=== PATIENT | male | born 1985 | race African-American/Black ===

== ENCOUNTER 2016-05-31 22:37 | Inpatient (IN) | payer OTHER ==
--- NOTE | ~2016-05-31 | A ---
[facility] Nutrition Therapy DATE: 06/01/16 Patient: NENA NETTLES Physician: BUSHRACAR Address: [address] Room/Bed: [address], Zip: [place] [address] Admit Date: 06/01/16 Date of : [birth year] Height: 5 11 Weight: 158 72 NUTRITIONAL ASSESSMENT: REASON: DKA Dx, NPO status in ICU 30 yo male admitted for DKA PMH: Chi 1 DM, SOLITARIO, HTN, DKA, anemia Anthropometrics: Ht: 5'11" Wt: 72 kg BMI: 22.1 Labs: Gluc 163 Accuchecks 56-279 Lipase 16 Meds: KCl, novolin, NaCl, D50% I/O & Bowel function: 2186/400, last BM 05/31 Skin Integrity: Scar to lower legs Edema: none noted Diet: NPO Assessment: Chart reviewed, events noted. Pt admitted for DKA, with h/o type [address] spoke with the pt at bedside, who was sleeping, lethargic. Pt woke up only to answer that he has lost weight, and is unsure of the amount or time frame. Pt is NPO per DKA protocol, and has orders to transfer to med surg once insulin drip is discontinued. RD left consistent carbohydrate diet education materials at bedside, and will follow up with the pt to further determine nutritional needs. Dx: Impaired glycemic control RT possibly uncontrolled DM AEB accuchecks 56-279, DKA. Intervention: 1. NPO 2. Advance diet once insulin drip discontinued Monitoring, Evaluation and Goals: 1. Oral intake; advance and tolerate diet once medically feasible 2. Labs; WNL: glucose 3. Weight; prevent unintentional weight loss Recommendations: 1. Once medically feasible when DKA protocol is lifted, advance the pt to a consistent carbohydrate diet as tolerated. [facility] Nutrition Therapy DATE: 06/01/16 Patient: NENA NETTLES Physician: JOSE ANGEL Address: [address] Room/Bed: [address], Zip: [place] [address] Admit Date: 06/01/16 Date of : [birth year] Height: 5 11 Weight: 158 72 2. Once the pt's diet is advanced, order Glucerna BID for supplemental nutrition. 3. Pt would benefit from consistent carbohydrate diet education once appropriate. Pt is at mild-moderate nutritional risk. RD will follow hospital course per protocol. Respectfully, KANDIS DRUMMOND RD, LD [facility] and Nutrition[facility] cc: client file
--- NOTE | ~2016-05-31 | EKG ---
PATIENT: NENA NETTLES UNIT #: [id number] Ventricular Rate: 92 BPM Atrial Rate: 92 BPM P-R Interval: 142 ms QRS Duration: 84 ms Q-T Interval: 360 ms QTC Calculation(Bezet): 445 ms P [place]: 72 degrees Calculated R [place]: 57 degrees Calculated T [place]: 32 degrees Diagnosis Line: Normal sinus rhythm Diagnosis Line: ST elevation, consider early repolarization, Diagnosis Line: pericarditis, or injury Diagnosis Line: Borderline ECG Diagnosis Line: No previous ECGs available Diagnosis Line: Confirmed by EBONIE BRIDGES MD ([id number]) on 06/03/2016 Diagnosis Line: 7:26:59 AM INTERPRETING MD: YULIANA BLACK
--- NOTE | ~2016-05-31 | HP ---
Unit #: [id number] #: [id number] Patient: NENA NETTLES [id number] [address] [address] [id number] I MR#: [id number] NAME: NENA NETTLES ROOM: [facility] Age: 30 Sex: M Admission Date: 06/01/2016 : 1985 Attending Physician: Davidson Jasso M.D. Primary Care Physician: No Primary Care Physician HISTORY AND PHYSICAL CHIEF COMPLAINT He says don't feel good, elevated blood sugar at home, nausea and vomiting. DISCUSSION This is a 30-year-old gentleman with a past medical history of insulin dependent diabetes, dyslipidemia, hypertension, who presented to emergency room with a chief complaint of not feeling very good and he said sugar was elevated at home. Feels body ache, tired, feels nauseous. In the ER he was found to have ketone in the urine. Sugar elevated to 475. Mild DKA and eventually admitted, started on insulin drip. He currently is feeling better. He denied chest pain, cough, fever, chills or other complaint. PAST MEDICAL HISTORY 1. History of insulin dependent diabetes. 2. History of gastroparesis. 3. Hypertension. 4. Depression. 5. Hyperlipidemia. PAST SURGICAL HISTORY History of cleft palate surgery. ALLERGIES No known drug allergies. SOCIAL HISTORY Denies smoking, denies alcohol, denies illicit drug use. FAMILY HISTORY Positive for diabetes. HOME MEDICATIONS 1. Lantus 33 units at bedtime. 2. Humulin R 10 units three times a day before meals. 3. Lipitor 10 mg daily. 4. He also says he takes some blood pressure medication. REVIEW OF SYSTEMS 14 review of systems was performed. All pertinent positive findings was not feeling well and high blood sugar, feeling fatigued and nauseous. Remaining were negative. PHYSICAL EXAMINATION GENERAL: Middle age man lying in the bed comfortably, currently not in Unit #: [id number] #: [id number] Patient: NENA NETTLES any distress. He is alert, awake, oriented x3. CURRENT VITAL SIGNS: Temperature 98, heart rate 80, respiratory rate 20, blood pressure 112/81. Oxygen 100% on room air. HEENT: Pupils equal, reactive to light. Head is normocephalic, atraumatic. NECK: Supple. No JVD. HEART: S1, S2. Regular rate and rhythm. ABDOMEN: Soft, nontender, nondistended. Bowel sounds positive. EXTREMITIES: Inspection normal. No cyanosis, no clubbing, no edema. NEURO: No focal neurologic deficit. SKIN: No rash. DIAGNOSTIC STUDIES LABORATORY: UA is negative. Positive for glucose more than 1000, positive for ketones. Flue negative. ABG - pH 7.39, O2 78, CO2 38. Chemistry - sodium 131, potassium 4.6, glucose 475, BUN 21, creatinine 1.8. LFT within normal limits. CBC - white count 5, hemoglobin 14, hematocrit 42, platelets 275. ASSESSMENT AND PLAN 1. Mild diabetic ketoacidosis: Continue insulin drip, DKA protocol. 2. Acute kidney injury. 3. Diabetes type 1. 4. Dyslipidemia. 5. History of hypertension. 6. DVT prophylaxis: Will place the patient on Lovenox. Dictated by Darlene Stewart TD: 06/01/2016 11:58 JOB #: [id number] HISTORY AND PHYSICAL X X HISTORY AND PHYSICAL
--- NOTE | ~2016-05-31 | DS ---
Unit #: [id number] #: [id number] Patient: NENA NETTLES [id number] [address] [address] [id number] I MR#: [id number] NAME: NENA NETTLES ROOM: 214 Age: 30 Sex: M Admission Date: 06/01/2016 : 1985 Discharge Date: 06/03/2016 Attending Physician: Juanita Acosta M.D. DISCHARGE SUMMARY DISCHARGE DIAGNOSES 1. Mild diabetic ketoacidosis. 2. Acute kidney injury. 3. Diabetes type 1, uncontrolled. 4. Hyperlipidemia. 5. Severe gastroparesis with multiple admissions for nausea and vomiting. 6. Hypertension. 7. History of depression. 8. Dehydration. 9. Mild hyponatremia. 10. Metabolic acidosis. CONSULTATION Dr. Navas. PROCEDURES None. DIAGNOSTIC STUDIES LABORATORY: Glucose 109, sodium 133, potassium 3.6, and creatinine 1. Blood cultures negative. IMAGING: Chest x-ray negative. ALLERGIES None. DISCHARGE MEDICATIONS 1. Lipitor 10 mg p.o. daily. 2. Lantus 33 units subcutaneous in the morning. 3. Humulin-R 10 units subcutaneous 3 times daily with meals. 4. Zofran 4 mg q.6 p.r.n. nausea. HOSPITAL COURSE This is a 30-year-old admitted because of nausea and vomiting. Mild DKA. Patient was admitted with insulin drip and DKA protocol and IV fluids given. Currently, DKA is resolved. Continue with insulin. I increased his insulin dose during the hospitalization course. Currently, sugars are 106. Acute kidney injury most likely secondary to DKA and dehydration. Patient received IV fluids. Creatinine is stable. Unit #: [id number] #: [id number] Patient: NENA NETTLES Diabetes type 1 with severe gastroparesis. He has been admitted multiple times here in the past, and also he went to [facility]. He takes Zofran and Reglan at home but with no luck. He might be a candidate for a stimulator. He agrees to see [facility] gastroenterology team for it. Hypertension, stable. DISPOSITION Patient will be discharged home. FOLLOWUP 1. With family physician in one week's time. 2. With [facility] gastroenterology team in one to two week's time. DISCHARGE INSTRUCTIONS 1. Patient is advised to see his family physician or come back to the ER if his symptoms persist or if his symptoms get worse. 2. Patient is advised to take small frequent meals and advised to control his sugars more closely. Patient understood the instructions. Dictated by... Darlene Guadalupe TD: 06/03/2016 21:33 JOB #: [id number] DISCHARGE SUMMARY X Juanita Acosta MD X DISCHARGE SUMMARY
--- NOTE | ~2016-05-31 | CR72 ---
[facility] A Service of [facility] RADIOLOGY TEXT RESULTS PATIENT: NENA NETTLES LOCATION: [facility] : [birth year] UNIT #: [id number] AGE: [address]: Davidson Jasso MD SEX: M ORDER DR: [id number] [place], [place] [address] [id number] I MR#: [id number] Acc #: [id number] NAME: NENA NETTLES : 1985 SEX: M STUDY DATE/TIME: 05/31/2016 22:57 UNIT: A ROOM: [facility] STUDY DESCRIPTION: CR Chest Single View Portable Attending Physician: Davidson Jasso M.D. Ordering Physician: Trever Hughes M.D. Primary Care Physician: No Primary Care Physician MEDICAL IMAGING REPORT This report is preliminary unless electronic signature is present EXAM AP portable chest. DATE OF EXAM 05/31/2016 HISTORY 30-year-old male in the ED with 1-day history of shortness of air. DKA is reported. TECHNIQUE AP portable chest x-ray. FINDINGS The examination is negative. The lungs are expanded and clear. Heart size and pulmonary vascularity are normal. No visible pulmonary infiltrate or pleural effusion. No change since 01/20/2016. IMPRESSION Negative chest. Dictated by... Kevin Carter M.D. THIS IS AN ELECTRONICALLY VERIFIED REPORT Kevin Carter M.D. at 06/02/2016 12:05 AM TRUMAN/srinath TD: 06/01/2016 22:45 JOB #: [id number] MEDICAL IMAGING REPORT [facility] A Service [facility] RADIOLOGY TEXT RESULTS PATIENT: NENA NETTLES LOCATION: [facility] : [birth year] UNIT #: [id number] AGE: [address]: Davidson Jasso MD SEX: M ORDER DR: COPY
--- NOTE | ~2016-05-31 | CO ---
Unit #: [id number] #: [id number] Patient: NENA NETTLES [id number] [address] [address] [id number] I MR#: [id number] NAME: NENA NETTLES ROOM: 214 Age: 30 Sex: M Admission Date: 06/01/2016 : 1985 Attending Physician: Davidson Jasso M.D. Primary Care Physician: No Primary Care Physician CONSULTATION REPORT REASON FOR CONSULTATION Critical care management. CHIEF COMPLAINT 30-year-old male with a past medical history of diabetes, gastroparesis, hypertension, dyslipidemia, depression, presented with a complaint of nausea, vomiting and has been admitted to intensive care unit with impression of DKA and acute kidney injury. I am seeing him at the bedside complaining of nausea, vomiting, abdominal pain. REVIEW OF SYSTEMS Positive pallor. No edema, no cyanosis, no jaundice. The rest of the twelve point review of systems has been reviewed and is negative. PAST MEDICAL HISTORY 1. Diabetes. 2. Gastroparesis. 3. Hypertension. 4. Dyslipidemia. 5. Depression. SURGICAL HISTORY Facial surgery. SOCIAL HISTORY Does not smoke. No alcohol, no drug abuse. FAMILY HISTORY Diabetes. HOME MEDICATIONS 1. Humulin. 2. Lantus. 3. Melatonin. 4. Lisinopril. 5. Reglan. PHYSICAL EXAMINATION VITAL SIGNS: Temperature 98, pulse 87, respirations 12, blood pressure 110/70. NEUROLOGICAL: Awake, alert, oriented. No neuro deficit. HEENT: PERRLA. NECK: Supple. No JVD. CHEST: Bilateral air entry, bilateral mild rhonchi. Unit #: [id number] #: [id number] Patient: NENA NETTLES GI: Nontender, soft. Bowel sounds positive. EXTREMITIES: No edema. SKIN: No rashes, no ulcers. LYMPHATIC: No lymphadenopathy. DIAGNOSTIC STUDIES Labs and imaging have been reviewed. ASSESSMENT AND PLAN 1. Diabetic ketoacidosis. 2. Acute kidney injury. 3. Gastroparesis. 4. Hypertension. 5. Dyslipidemia. 6. Depression. Plan is to continue IV fluids, insulin drip as per protocol. Monitor electrolytes and replaced. Renal function improving. Potassium and magnesium protocol. Will continue to monitor. Follow with endocrinology. ICU protocol. The patient will be closely monitored. Thank you very much for this consultation. Dictated by... Darlene Mendoza TD: 06/01/2016 14:08 JOB #: [id number] CONSULTATION REPORT X Holly Navas MD CONSULTATION REPORT
[2016-05-31 19:14] LABS: BASOPHIL% 0.7 % (0-2.5); HEMATOCRIT 42.9 % (38.0-50.0); LYMPHOCYTE# 1.6 X10e3 (1.0-3.5); LYMPHOCYTE% 28.9 % (17.0-45.0); MEAN CELL VOLUME 93.2 FL (83-96); MEAN CORPUSCULAR HEMOGLOBIN 30.4 PG (28-34); MEAN CORPUSCULAR HGB CONC 32.6 g/dL (30-36); MEAN PLATELET VOLUME 9.5 FL (6.5-11.5); MONOCYTE# 0.3 X10e3 (0-1.0); MONOCYTE% 5.1 % (3.0-12.0); NEUTROPHIL# 3.5 X10e3 (1.5-7.1); NEUTROPHIL% 65.3 % (40-75); PLATELET COUNT 275 X10e3 (140-420); RED CELL DISTRIBUTION WIDTH 13.2 % (11.0-15.5); WHITE BLOOD COUNT 5.4 X10e3 (4.0-10.5)
[2016-05-31 19:16] LABS: DIFF IND NO
[2016-05-31 19:40] LABS: ALBUMIN SERUM 4.7 g/dL (3.5-5.0); BETA HYDROXYBUTYRATE 5.69 MMOL/L (0.02-0.27); BILIRUBIN, DIRECT 0.1 mg/dL (0.0-0.2); BILIRUBIN,INDIRECT 0.9 mg/dL (0.0-0.9); BUN/CREATININE RATIO 11.66; CREATININE SERUM 1.8 mg/dL (0.6-1.4); GLOM FILT RATE Estimated 56.5 mL/min (>60); POTASSIUM 4.6 mmol/L (3.5-5.1); PROTEIN TOTAL SERUM 8.9 g/dL (6.0-8.3)
[~2016-05-31 22:37] MED LIST: ACETAMINOPHEN325 MG PO; ASPIRIN81 MG PO; CELEXA20 MG PO; CYMBALTA30 MG PO; ERY-TAB333 M1 PO; HUMALOG100 U/M2 SUBQ; HUMALOG100 U/ML SUBQ; HUMULIN R100 U/ML SUBQ; LANTUS100 U/M1 SUBQ; LANTUS100 U/ML SUBQ; LANTUS100 UNITS/ SUBQ; LEVEMIR100 UNITS/ SUBQ; LIPITOR PO; LIPITOR40 MG PO; LISINOPRIL10 MG PO; LISINOPRIL20 MG PO; MELATONIN3 M4 PO; METFORMIN HCL500 M1 PO; METFORMIN HYDRO25 GM; METFORMIN PO; NEURONTIN300 MG PO; NOVOLOG100 U/ML SQ; NOVOLOG100 U/ML SUBQ; ONDANSETRON HCL4 MG PO; PHENERGAN25 M1 PO; PHENERGAN25 MG PO; PROTONIX PO; REGLAN10 MG PO; REGULAR INSULIN SUBQ; ZOFRAN8 MG PO
[2016-05-31 22:38] LABS: ARTERIAL BLD GAS O2 SATURATION 70.8 % (90.0-100.0); ARTERIAL BLOOD GAS HCO3 23.4 mmol/L; ARTERIAL BLOOD GAS MET HB 1.2 %sat (0.0-2.0); ARTERIAL BLOOD GAS PCO2 38.5 mmHg (35.0-45.0); ARTERIAL BLOOD GAS PO2 78.1 mmHg (80.0-100); ARTERIAL BLOOD GAS pH 7.392 (7.350-7.450); ARTERIAL DRAW? NO
[2016-05-31 23:19] LABS: INFLUENZA A NEG (NEG); INFLUENZA B NEG (NEG)
[2016-06-01 00:34] LABS: URINE SOURCE CLEAN CATCH
[2016-06-01] MEDS ORDERED: ATORVASTATIN CA10 MG PO (00:36)
[2016-06-01 00:39] LABS: URINE APPEARANCE CLEAR; URINE BILIRUBIN NEG (NEG); URINE BLOOD NEG (NEG); URINE COLOR YELLOW; URINE GLUCOSE >1000 MG/DL (NEG); URINE KETONE 3+ (NEG); URINE LEUKOCYTE ESTERASE NEG (NEG); URINE NITRATE NEG (NEG); URINE PH 5.5 (5-8); URINE PROTEIN TRACE (NEG); URINE SPECIFIC GRAVITY 1.036 (1.003-1.035); URINE UROBILINOGEN 0.2 MG/DL (NEG)
[2016-06-01 03:46] LABS: AMYLASE 21 U/L (0-46); BLOOD UREA NITROGEN 23 mg/dL (9-23); BUN/CREATININE RATIO 17.69; CALCIUM SERUM 9.1 mg/dL (8.4-10.2); CARBON DIOXIDE 24 mmol/L (22-31); CHLORIDE 103 mmol/L (100-111); CREATININE SERUM 1.3 mg/dL (0.6-1.4); GLOM FILT RATE Estimated ABOVE60 mL/min (>60); GLUCOSE FASTING 163 mg/dL (70-110); LIPASE 16 U/L (22-51); POTASSIUM 4.1 mmol/L (3.5-5.1); SODIUM 139 mmol/L (135-145)
[2016-06-01 11:15] LABS: BASOPHIL% 0.6 % (0-2.5); EOSINOPHIL% 0.2 % (0.0-7.0); HEMATOCRIT 33.9 % (38.0-50.0); LYMPHOCYTE# 3.1 X10e3 (1.0-3.5); LYMPHOCYTE% 46.5 % (17.0-45.0); MEAN CELL VOLUME 91.3 FL (83-96); MEAN CORPUSCULAR HEMOGLOBIN 30.3 PG (28-34); MEAN CORPUSCULAR HGB CONC 33.2 g/dL (30-36); MEAN PLATELET VOLUME 9.3 FL (6.5-11.5); MONOCYTE# 0.7 X10e3 (0-1.0); MONOCYTE% 10.6 % (3.0-12.0); NEUTROPHIL# 2.8 X10e3 (1.5-7.1); NEUTROPHIL% 42.1 % (40-75); PLATELET COUNT 229 X10e3 (140-420); RED BLOOD COUNT 3.72 X10e (3.90-5.60); RED CELL DISTRIBUTION WIDTH 13.1 % (11.0-15.5); WHITE BLOOD COUNT 6.7 X10e3 (4.0-10.5)
[2016-06-01 11:16] LABS: HEMOGLOBIN 11.3 gm/dL (13.0-16.0)
[2016-06-01 11:17] LABS: DIFF IND NO
[2016-06-01 13:01] LABS: BLOOD UREA NITROGEN 19 mg/dL (9-23); BUN/CREATININE RATIO 15.83; CALCIUM SERUM 8.8 mg/dL (8.4-10.2); CARBON DIOXIDE 25 mmol/L (22-31); CHLORIDE 113 mmol/L (100-111); CREATININE SERUM 1.2 mg/dL (0.6-1.4); GLOM FILT RATE Estimated ABOVE60 mL/min (>60); GLUCOSE FASTING 76 mg/dL (70-110); POTASSIUM 3.4 mmol/L (3.5-5.1); SODIUM 141 mmol/L (135-145)
[2016-06-02 13:52] LABS: MAGNESIUM 1.6 mg/dL (1.6-3.0); POTASSIUM 3.2 mmol/L (3.5-5.1)
[2016-06-03 05:09] LABS: BLOOD UREA NITROGEN 9 mg/dL (9-23); CALCIUM SERUM 8.4 mg/dL (8.4-10.2); CARBON DIOXIDE 24 mmol/L (22-31); CHLORIDE 104 mmol/L (100-111); GLOM FILT RATE Estimated ABOVE60 mL/min (>60); GLUCOSE FASTING 283 mg/dL (70-110); MAGNESIUM 1.9 mg/dL (1.6-3.0); POTASSIUM 3.6 mmol/L (3.5-5.1); SODIUM 133 mmol/L (135-145)
[2016-06-03] MEDS ORDERED: ZOFRAN PO (19:29)
== END 2016-06-03 19:35 | disposition home or self-care (01) | DRG 638 ==
LOC: CED 22:37 → CEDOF 06-01 01:10 → CICCU2 06-01 03:11 → C2A 06-01 13:58
PROVIDERS: Emergency Medicine; Internal Medicine; Internal Medicine Endocrinology, Diabetes & Metabolism
DX: E10.10 Type 1 diabetes mellitus with ketoacidosis without coma (principal); N17.9 Acute kidney failure, unspecified; K31.84 Gastroparesis; E10.43 Type 1 diabetes mellitus with diabetic autonomic (poly)neuropathy; E87.1 Hypo-osmolality and hyponatremia; E78.5 Hyperlipidemia, unspecified; I10 Essential (primary) hypertension; F32.9 Major depressive disorder, single episode, unspecified; E86.0 Dehydration; Z83.3 Family history of diabetes mellitus
CPT/HCPCS: 71010; 80048; 80076; 81003; 82010; 82150; 82803; 82947; 83036; 83690; 83735; 84100; 84132; 85025; 87040; 87804; 93005; 96361; 96374; 96375; 99285; J1650; J1815; J2270; J2405; J2550; J2765; J3475

== ENCOUNTER 2016-11-24 14:59 | Emergency (ER) | payer OTHER ==
[~2016-11-24] VITALS: Ht 180.3 cm; Wt 75.7 kg
[~2016-11-24 14:59] MED LIST changes: +ATORVASTATIN CA10 MG PO; +ZOFRAN PO
[2016-11-24 17:02] LABS: ARTERIAL BLD GAS O2 SATURATION 55.6 % (90.0-100.0); ARTERIAL BLOOD GAS HCO3 32.5 mmol/L; ARTERIAL BLOOD GAS MET HB 0.7 %sat (0.0-2.0); ARTERIAL BLOOD GAS PCO2 48.5 mmHg (35.0-45.0); ARTERIAL BLOOD GAS pH 7.434 (7.350-7.450)
[2016-11-24 17:06] LABS: ARTERIAL BLOOD GAS PO2 30.1 mmHg (80.0-100)
[2016-11-24 17:14] LABS: BASOPHIL# 0.1 X10e3 (0-0.3); BASOPHIL% 0.7 % (0-2.5); EOSINOPHIL% 0.1 % (0.0-7.0); HEMATOCRIT 36.5 % (38.0-50.0); HEMOGLOBIN 12.4 gm/dL (13.0-16.0); LYMPHOCYTE# 3.6 X10e3 (1.0-3.5); LYMPHOCYTE% 39.4 % (17.0-45.0); MEAN CELL VOLUME 87.7 FL (83-96); MEAN CORPUSCULAR HEMOGLOBIN 29.7 PG (28-34); MEAN CORPUSCULAR HGB CONC 33.8 g/dL (30-36); MEAN PLATELET VOLUME 9.2 FL (6.5-11.5); MONOCYTE# 0.7 X10e3 (0-1.0); MONOCYTE% 8.3 % (3.0-12.0); NEUTROPHIL# 4.7 X10e3 (1.5-7.1); NEUTROPHIL% 51.5 % (40-75); PLATELET COUNT 267 X10e3 (140-420); RED BLOOD COUNT 4.16 X10e (3.90-5.60); RED CELL DISTRIBUTION WIDTH 14.7 % (11.0-15.5)
[2016-11-24 17:17] LABS: DIFF IND NO
[2016-11-24 17:43] LABS: ALBUMIN SERUM 4.7 g/dL (3.5-5.0); BETA HYDROXYBUTYRATE 0.36 MMOL/L (0.02-0.27); BILIRUBIN, DIRECT 0.1 mg/dL (0.0-0.2); BILIRUBIN,INDIRECT 0.5 mg/dL (0.0-0.9); BILIRUBIN,TOTAL 0.6 mg/dL (0.2-2.0); CALCIUM SERUM 10.1 mg/dL (8.4-10.2); GLOM FILT RATE Estimated 49.7 mL/min (>60); POTASSIUM 3.9 mmol/L (3.5-5.1)
[2016-11-24 18:56] LABS: URINE SOURCE CLEAN CATCH
[2016-11-24 19:00] LABS: URINE APPEARANCE CLEAR; URINE BILIRUBIN NEG (NEG); URINE BLOOD NEG (NEG); URINE COLOR YELLOW; URINE GLUCOSE 100 MG/DL (NEG); URINE KETONE 1+ (NEG); URINE LEUKOCYTE ESTERASE NEG (NEG); URINE NITRATE NEG (NEG); URINE PH 5.5 (5-8); URINE PROTEIN 1+ (NEG); URINE SPECIFIC GRAVITY 1.021 (1.003-1.035); URINE UROBILINOGEN 0.2 MG/DL (NEG)
[2016-11-24 19:03] LABS: URBCS1 AUWI 0-2 /[HPF] (0-2); URINE BACTERIA AUWI NEG (NEGATIVE); URINE SQUAMOUS EPITHELIAL CELL NONE SEEN /[HPF]; UWBCS1 AUWI 0-2 (0-5)
[2016-11-25 08:49] LABS: ARTERIAL DRAW? NO
== END 2016-11-24 18:52 | disposition home or self-care (01) ==
LOC: CED 14:59
PROVIDERS: Emergency Medicine
DX: E10.65 Type 1 diabetes mellitus with hyperglycemia (principal); E10.43 Type 1 diabetes mellitus with diabetic autonomic (poly)neuropathy; K31.84 Gastroparesis; N17.9 Acute kidney failure, unspecified; F17.200 Nicotine dependence, unspecified, uncomplicated; Z98.890 Other specified postprocedural states; Z79.4 Long term (current) use of insulin
CPT/HCPCS: 36415; 80048; 80076; 81003; 82010; 82150; 82803; 82947; 83690; 85025; 96361; 96374; 99284; J2765